=== PATIENT | female | born 1950 | race African-American/Black ===

== ENCOUNTER 2024-01-03 10:40 | Inpatient (IN) | payer MEDICARE, MEDICAID ==
[~2024-01-03] VITALS: Ht 162.6 cm; Wt 60.8 kg
[2024-01-03] MEDS: METOCLOPRAMIDE HCL 10MG/2ML VIAL IV ONE (11:05)
[2024-01-03] MEDS: SODIUM CHLORIDE 0.9% 1,000 ML IV ONE (11:37)
[2024-01-03] MEDS: KETOROLAC 30MG/ML VIAL IV STA (11:38)
[2024-01-03 12:04] LABS: BASOPHILS % 0.4 % (0.0-2.0); EOSINOPHILS % 0.2 % (0.0-5.0); HEMATOCRIT. 52.7 % (36.0-48.0); HEMOGLOBIN. 17.1 g/dL (12.0-16.0); LYMPHOCYTES % 29.3 % (20.0-50.0); MEAN CORPUSCULAR HEMOGLOBIN 31.8 pg (28.0-32.0); MEAN CORPUSCULAR HGB CONC 32.5 g/dL (31.0-37.0); MEAN CORPUSCULAR VOLUME 97.7 fL (81.0-99.0); MEAN PLATELET VOLUME 8.8 fl (7.4-10.4); MONOCYTES % 6.5 % (2.0-8.0); NEUTROPHILS % 63.6 % (40.0-76.0); PLATELET 161 x1000/uL (130-400); RED CELL DISTRIBUTION WIDTH 16.1 % (11.6-14.6); WHITE BLOOD COUNT 3.7 x1000/uL (4.5-11.0)
[2024-01-03 15:13] LABS: ALANINE AMINOTRANSFERASE 21 IU/L (10-49); ALBUMIN 4.1 g/dL (3.2-4.8); ASPARTATE AMINOTRANSFERASE 36 IU/L (<34); CALCIUM 9.1 mg/dL (8.7-10.4); CARBON DIOXIDE 24 mEq/L (21-32); CHLORIDE 109 mEq/L (98-107); GLUCOSE 69 mg/dL (70-105); PROTEIN TOTAL 8.2 g/dL (6.0-8.3); SODIUM 135 mEq/L (136-145); UREA NITROGEN BLOOD 11 mg/dL (9-23)
[2024-01-03 16:40] LABS: ALANINE AMINOTRANSFERASE 20 IU/L (10-49); ALBUMIN 4.5 g/dL (3.2-4.8); ASPARTATE AMINOTRANSFERASE 40 IU/L (<34); BILIRUBIN TOTAL 1.2 mg/dL (0.1-1.0); CALCIUM 9.2 mg/dL (8.7-10.4); CARBON DIOXIDE 23 mEq/L (21-32); CHLORIDE 107 mEq/L (98-107); CREATININE 0.9 mg/dL (0.6-1.0); GLUCOSE 73 mg/dL (70-105); PROTEIN TOTAL 8.2 g/dL (6.0-8.3); SODIUM 136 mEq/L (136-145); UREA NITROGEN BLOOD 11 mg/dL (9-23)
[2024-01-03 16:53] LABS: POTASSIUM 6.5 mEq/L (3.5-5.1)
[2024-01-03 17:39] LABS: PROTHROMBIN TIME 10.9 sec (9.6-11.0)
[2024-01-04] VITALS (7 sets, daily range): BP systolic 103–156; BP diastolic 56–77; PULSE 57–81; RESP 18–20; TEMP 96.5–97.5; O2SAT 97
[2024-01-04] MEDS ORDERED: IPRATROPIUM/ALBUTEROL 0.5-3(2.5)MG/3ML NEB HHN PRN
[2024-01-04] MEDS: AMLODIPINE 10MG TABLET PO SCH (00:55)
[2024-01-04] MEDS: SODIUM POLYSTYRENE SULFONATE 15 G/60 ML BOT PO NR (00:56)
[2024-01-04] MEDS: ACETAMINOPHEN 325MG TABLET PO PRN (00:56)
[2024-01-04 07:16] LABS: BASOPHILS % 0.4 % (0.0-2.0); EOSINOPHILS % 0.4 % (0.0-5.0); HEMATOCRIT. 42.6 % (36.0-48.0); HEMOGLOBIN. 14.3 g/dL (12.0-16.0); LYMPHOCYTES % 43.1 % (20.0-50.0); MEAN CORPUSCULAR HEMOGLOBIN 31.7 pg (28.0-32.0); MEAN CORPUSCULAR HGB CONC 33.7 g/dL (31.0-37.0); MEAN CORPUSCULAR VOLUME 93.9 fL (81.0-99.0); MEAN PLATELET VOLUME 9.5 fl (7.4-10.4); MONOCYTES % 8.5 % (2.0-8.0); NEUTROPHILS % 47.6 % (40.0-76.0); PLATELET 178 x1000/uL (130-400); RED BLOOD CELL COUNT 4.53 mill/uL (4.2-5.4); RED CELL DISTRIBUTION WIDTH 15.4 % (11.6-14.6); WHITE BLOOD COUNT 4.2 x1000/uL (4.5-11.0)
[2024-01-04 07:54] LABS: CALCIUM 8.7 mg/dL (8.7-10.4); CARBON DIOXIDE 25 mEq/L (21-32); CHLORIDE 110 mEq/L (98-107); CHOLESTEROL 150 mg/dL (<200); CREATININE 0.8 mg/dL (0.6-1.0); GLUCOSE 98 mg/dL (70-105); HDL CHOLESTEROL 49 mg/dL (>65); LDL CHOLESTEROL 88 mg/dL (5-100); POTASSIUM 4.1 mEq/L (3.5-5.1); SODIUM 141 mEq/L (136-145); TRIGLYCERIDE 50 mg/dL (0-150); UREA NITROGEN BLOOD 11 mg/dL (9-23)
[2024-01-04] MEDS: ASPIRIN 81MG TABLET PO SCH (09:08)
[2024-01-04] MEDS ORDERED: ATORVASTATIN CALCIUM 40MG TABLET PO SCH (21:00)
== END 2024-01-04 14:42 | disposition home or self-care (01) | DRG 103 ==
LOC: ER 10:40 → 6EST 13:49 → EDBEDREQTM 13:50 → EDBEDREQ 13:50
PROVIDERS: ADMIT Internal Medicine; ATTEND Internal Medicine
DX: G43.909 Migraine, unspecified, not intractable, without status migrainosus (principal); I16.0 Hypertensive urgency; I10 Essential (primary) hypertension; E87.5 Hyperkalemia; I69.30 Unspecified sequelae of cerebral infarction; J44.9 Chronic obstructive pulmonary disease, unspecified; Z79.899 Other long term (current) drug therapy
CPT/HCPCS: 36415; 80048; 80053; 80061; 85025; 99285; J1885; J2765; J7030

== ENCOUNTER 2024-10-24 22:07 | Emergency (ER) | payer OTHER, MEDICAID ==
[~2024-10-24] VITALS: Ht 162.6 cm; Wt 64.0 kg
[~2024-10-24 22:07] MED LIST: AMLO2.5T45 PO; ASPI-1406 PO; ATOR10TA PO; FURO40TA5 PO; LISI-186 PO
[2024-10-24 22:09] VITALS: O2SAT 99
[2024-10-25] MEDS: ASPIRIN 81MG TABLET PO ONE (04:11)
[2024-10-25 06:05] LABS: CARBON DIOXIDE 26 mEq/L (21-32); CHLORIDE 109 mEq/L (98-107); POTASSIUM 3.9 mEq/L (3.5-5.1); SODIUM 143 mEq/L (136-145)
[2024-10-25 06:06] LABS: CALCIUM 9.6 mg/dL (8.7-10.4)
[2024-10-25 06:11] LABS: CREATININE 1.1 mg/dL (0.6-1.0); GLUCOSE 114 mg/dL (70-105); UREA NITROGEN BLOOD 13 mg/dL (9-23)
[2024-10-25 06:17] LABS: BASOPHILS % 0.5 % (0.0-2.0); EOSINOPHILS % 1.2 % (0.0-5.0); LYMPHOCYTES % 29.9 % (20.0-50.0); MEAN CORPUSCULAR HEMOGLOBIN 32.1 pg (28.0-32.0); MEAN CORPUSCULAR HGB CONC 33.4 g/dL (31.0-37.0); MEAN CORPUSCULAR VOLUME 96.1 fL (81.0-99.0); MEAN PLATELET VOLUME 9.1 fl (7.4-10.4); MONOCYTES % 8.2 % (2.0-8.0); NEUTROPHILS % 60.2 % (40.0-76.0); PLATELET 180 x1000/uL (130-400); RED BLOOD CELL COUNT 4.68 mill/uL (4.2-5.4); RED CELL DISTRIBUTION WIDTH 14.8 % (11.6-14.6); WHITE BLOOD COUNT 4.9 x1000/uL (4.5-11.0)
[2024-10-25 06:23] LABS: PROTHROMBIN TIME 11.3 sec (9.6-11.0)
[2024-10-25 06:32] LABS: TROPONIN I HIGH SENSITIVITY 226 ng/L (3.0-34)
[2024-10-25 07:15] LABS: CLARITY URINE CLEAR (CLEAR); COLOR URINE YELLOW (YELLOW); GLUCOSE URINE NEGATIVE (NEGATIVE); KETONES URINE NEGATIVE (NEGATIVE); LEUKOCYTE ESTERASE URINE NEGATIVE (NEGATIVE); NITRITE URINE NEGATIVE (NEGATIVE); OCCULT BLOOD URINE TRACE (NEGATIVE); PH URINE 5.5 (4.5-8.0); PROTEIN URINE 2+ (NEGATIVE); SPECIFIC GRAVITY URINE 1.027 (1.005-1.030)
[2024-10-25 07:32] LABS: RBC URINE 0-2 /hpf (0-2); WBC URINE 0-2 /hpf (0-2)
[2024-10-25 07:33] LABS: SQUAMOUS EPITHELIAL CELL URINE 1+ /lpf (RARE/1+)
[2024-10-25 07:34] LABS: BACTERIA URINE TRACE; YEAST URINE 1+
[2024-10-25 08:46] LABS: TROPONIN I HIGH SENSITIVITY 220 ng/L (3.0-34)
[2024-10-25 11:55] VITALS: BP 165/91; PULSE 70; RESP 15; TEMP 36.66960; O2SAT 97
== END 2024-10-25 12:19 | disposition short-term general hospital (02) ==
LOC: ER 22:07 → CANBEDREQ 10-25 09:16 → ER 10-25 12:19
DX: R07.89 Other chest pain (principal); J44.9 Chronic obstructive pulmonary disease, unspecified; E78.00 Pure hypercholesterolemia, unspecified; I10 Essential (primary) hypertension; Z86.73 Personal history of transient ischemic attack (TIA), and cerebral infarction without residual deficits; Z79.899 Other long term (current) drug therapy; Z79.82 Long term (current) use of aspirin; Z20.822 Contact with and (suspected) exposure to COVID-19
CPT/HCPCS: 99285; 71045; 93005 ×2; 87426; 80048; 81003; 83880; 85025; 85610; 84484; 36415; C1893